=== PATIENT | male | born 1970 | race Caucasian/White ===

== ENCOUNTER 2018-03-25 07:46 | Emergency (ER) | payer OTHER ==
--- NOTE | 2018-03-25 08:57 | EDPHY ---
H & P Stated Complaint: Fell last night, injury to right shoulder blade, left ribs and left ankle. - Personal History Current Tetanus Diphtheria and Acellular Pertussis (TDAP): Yes Tetanus Vaccine Date: within 10 years - Medical/Surgical History Hx Asthma: No Hx Chronic Respiratory Disease: No Hx Diabetes: No Hx Cardiac Disease: No Hx Renal Disease: No Hx Cirrhosis: No Hx Alcoholism: No Hx HIV/AIDS: No Hx Splenectomy or Spleen Trauma: No Other PMH: MS. - Social History Smoking Status: Former smoker Time Seen by Provider: 03/25/18 08:55 HPI/ROS: CHIEF COMPLAINT: Left foot ankle and the rib pain HISTORY OF PRESENT ILLNESS: 48-year-old male history of multiple sclerosis arrives via private vehicle with his stating last night when he was in the shower he sustained a mechanical fall. Due to his MS he has baseline of balance issues in had a mechanical incident the shower last evening rolling his left foot and also impacting his left ribs. The may have impacted his head however no loss of consciousness no headache no nausea no vomiting no altered mentation. He lives in a handicap accessible home, has a wheelchair, multiple ramps and feels comfortable and safe in his current housing situation. Denies: Chest pain, syncope, midline C-spine pain, peripheral paresthesia, weakness, numbness. PRIMARY CARE PROVIDER: Dr. Geovanny Schwartz REVIEW OF SYSTEMS: A ten point review of systems was performed and is negative with the exception of the items mentioned in the HPI PAST MEDICAL/SURGICAL HISTORY: no anticoagulant use, multiple sclerosis SOCIAL HISTORY: denies alcohol use at time of incident PHYSICAL EXAM 1) GENERAL: Well-developed, well-nourished, alert and oriented. Appears to be in no acute distress. Answering questions appropriately. 2) HEAD: Normocephalic, atraumatic 3) HEENT: Pupils equal, round, reactive to light bilaterally. Negative Horners. Nasopharynx, oropharynx, clear. No deformity or angulation of nose. No septal hematoma. No rhinorrhea. No oral trauma. Ears bilaterally with normal tympanic membranes. No hemotympanum. No fluid or blood in the external auditory canal. No raccoon eyes. No Somers sign. Teeth are normally aligned with no gross malocclusion, TMJ bilaterally nontender, facial bones nontender including the zygomatic arch, maxilla mandible. 4) NECK: No cervical collar is on. Posterior cervical spine is nontender, no stepoff, no effusion. Full range of motion which does not elicit any midline cervical spine pain, no posterior midline tenderness, no step-off. [ 5) LUNGS: Clear to auscultation bilaterally, no wheezes, no rhonchi, no retractions. No obvious signs of trauma. Tender to palpation the patient left ribs anterior axillary line approximately rib 10. No flaring, no grunting. Moving symmetrically. No crepitus. 6) HEART: [Regular rate and rhythm, 7) ABDOMEN: No guarding, no rebound, no focal tenderness, no peritoneal signs, no signs of trauma, no ecchymosis. Specifically left flank and splenic region are nontender. 8) MUSCULOSKELETAL: Left lower extremity: Tender to palpation left lateral ankle, tender to palpation left lateral foot with noted soft tissue swelling at both locations. Intact skin. No ecchymosis. Soft compartments. Fibular head and knee and remainder of left lower extremity are nontender. DP PT pulses present and tacked. Otherwise, Moving all extremities, no focal areas of tenderness, no obvious trauma. 9) BACK: No midline vertebral tenderness, no fluctuance, no step-off, no obvious trauma, no visual or palpable abnormality. 10) SKIN: No laceration. No abrasion DIFFERENTIAL DIAGNOSIS: In no particular order including, but not limited to fracture, sprain, compartment syndrome (Kavon,Jaleesa Aleja) Constitutional: Initial Vital Signs Temperature (C) 36.6 C 03/25/18 07:52 Heart Rate 65 03/25/18 07:52 Respiratory Rate 16 03/25/18 07:52 Blood Pressure 136/100 H 03/25/18 07:52 O2 Sat (%) 95 03/25/18 07:52 O2 Delivery Mode Room Air Allergies/Adverse Reactions: Sulfa (Sulfonamide Antibiotics) Allergy (Verified 03/25/18 08:09) Home Medications: Medication Instructions Recorded Calcium Carbonate [Tums 500MG (*)] 500 mg PO DAILY 03/13/15 Cholecalciferol Vit D3 [Vitamin D3 5,000 units PO DAILY 03/13/15 (*)] Multivitamins [Multivitamin (*)] 1 each PO DAILY 03/13/15 [place]-3 Fatty Acids/Fish Oil 2 each PO DAILY 04/09/15 [[place] 3 1,000 mg Softgel] Aspirin [Aspirin 81mg (*)] 81 mg PO DAILY #0 tab 05/07/15 Citalopram [CeleXA 20 MG] 20 mg PO HS #0 tab 05/07/15 Melatonin [Melatonin 3 MG (*)] 3 - 6 mg PO HS PRN #0 tab 05/07/15 Hydrocodone/APAP 5/325 [[place] 1 tab PO Q6 PRN #10 tab 03/25/18 5/325 (RX)] Medical Decision Making - Diagnostics Imaging Results: Images reviewed myself (Jaleesa Jacobson) ED Course/Re-evaluation: 9:08 a.m.: Care of patient under supervision of primary secondary supervising physician who independently evaluated patientwith whom I discussed case. 10:30 a.m.: Re-evaluation. Discussed the imaging results showing left 6th through 8th rib fractures and foot fracture. Patient is maintain normal saturations and he would like to be discharged. I offered admission however he declines this. He has been placed in a Crescent boot, given incentive spirometer. Recommend orthopedic follow-up and follow up with PCP for his rib fracture. Discharged home with analgesia. Discharged with usual and customary orthopedic precautions and instructions (Jaleesa Jacobson) Other Provider: The patient was evaluated and managed by the Physician Production Checker. My co- signature indicates that I have reviewed this chart and I agree with the findings and plan of care as documented. I am the secondary supervising physician. (Dione Mason) Departure - Departure Disposition: Home, Routine, Self-Care Clinical Impression: History of multiple sclerosis, Multiple rib fractures, Foot fracture, left Condition: Good Instructions: Multiple Sclerosis (DC), Rib Fracture (ED), Foot Fracture in Adults (ED) Additional Instructions: Return to the ER immediately if you experience discoloration, have worsening pain, numbness, tingling, or any other symptoms that concern you. If you received x-rays in the emergency department today, be advised, that ligamentous , tendon, muscular, and other non-bony injury cannot be fully ruled out. Try to keep your affected extremity elevated above the level of your chest, and keep cold packs on the affected area, for the next 48 hours. Use your incentive spirometer every hour while awake Referrals: Geovanny Schwartz MD [Primary Care Provider] - 2-3 days, call for appt. Patrice Betancur MD [Medical Doctor] - 2-3 days, call for appt. Prescriptions: Hydrocodone/APAP 5/325 [[place] 5/325 (RX)] 1 tab PO Q6 PRN #10 tab PRN Reason: Pain, Severe
[2018-03-25 11:00] VITALS: BP 133/68
== END 2018-03-25 11:00 | disposition home or self-care (01) ==
DX: S22.42XA Multiple fractures of ribs, left side, initial encounter for closed fracture (principal); S92.902A Unspecified fracture of left foot, initial encounter for closed fracture; Z86.69 Personal history of other diseases of the nervous system and sense organs; Z87.891 Personal history of nicotine dependence; Z79.82 Long term (current) use of aspirin; W18.2XXA Fall in (into) shower or empty bathtub, initial encounter; Y99.8 Other external cause status; Y93.89 Activity, other specified
CPT/HCPCS: 71101; 73610; 73630; 99284; L4386

== ENCOUNTER 2019-02-14 16:52 | Observation (INO) | payer OTHER ==
--- NOTE | 2019-02-14 17:13 | EDPHY ---
H & P Stated Complaint: cough Time Seen by Provider: 02/14/19 17:11 HPI/ROS: CHIEF COMPLAINT: Cough, diagnosed with pneumonia today HISTORY OF PRESENT ILLNESS: Patient has a history of multiple sclerosis and presents to the emergency department after he was diagnosed with a left lower lobe pneumonia by his primary care provider today. The patient has had a cough for the past 11 days and was noted to have an oxygen saturation of 70% on room air. The patient does have a history of multiple sclerosis. The patient denies any pleuritic chest pain. The patient denies any asymmetric calf pain or swelling. The patient has not been on recent antibiotics. He has no history of recent hospitalization. The patient denies any abdominal pain, vomiting or diarrhea. The patient does report moderate dyspnea on exertion. REVIEW OF SYSTEMS: A comprehensive 10 point review of systems is otherwise negative aside from elements mentioned in the history of present illness. Source: Patient - Personal History Current Tetanus/Diphtheria Vaccine: Yes Current Tetanus Diphtheria and Acellular Pertussis (TDAP): Yes Tetanus Vaccine Date: within 10 years - Medical/Surgical History Hx Asthma: No Hx Chronic Respiratory Disease: No Hx Diabetes: No Hx Cardiac Disease: No Hx Renal Disease: No Hx Cirrhosis: No Hx Alcoholism: No Hx HIV/AIDS: No Hx Splenectomy or Spleen Trauma: No Other PMH: MS. - Social History Smoking Status: Former smoker - Physical Exam Exam: General Appearance: Alert, no distress Eyes: Pupils equal and round no pallor or injection ENT, Mouth: Mucous membranes moist Respiratory: There are no retractions, lungs are clear to auscultation Cardiovascular: Regular rate and rhythm Gastrointestinal: Abdomen is soft and nontender, no masses, bowel sounds normal Neurological: A&O, normal motor function, normal sensory exam, normal cranial nerves Skin: Warm and dry, no rashes Musculoskeletal: Neck is supple nontender Extremities: symmetrical, full range of motion Constitutional: Initial Vital Signs Temperature (C) 37.1 C 02/14/19 17:04 Heart Rate 99 02/14/19 17:04 Respiratory Rate 16 02/14/19 17:04 Blood Pressure 120/86 H 02/14/19 17:04 O2 Sat (%) 87 L 02/14/19 17:04 O2 Delivery Mode Nasal Cannula O2 (L/minute) 3 Allergies/Adverse Reactions: amoxicillin Allergy (Verified 02/14/19 17:02) Sulfa (Sulfonamide Antibiotics) Allergy (Verified 03/25/18 08:09) Home Medications: Medication Instructions Recorded Calcium Carbonate [Tums 500MG (*)] 500 mg PO DAILY 03/13/15 Cholecalciferol Vit D3 [Vitamin D3 5,000 units PO DAILY 03/13/15 (*)] Multivitamins [Multivitamin (*)] 1 each PO DAILY 03/13/15 [place]-3 Fatty Acids/Fish Oil 2 each PO DAILY 04/09/15 [[place] 3 1,000 mg Softgel] Aspirin [Aspirin 81mg (*)] 81 mg PO DAILY #0 tab 05/07/15 Citalopram [CeleXA 20 MG] 20 mg PO HS #0 tab 05/07/15 Baclofen 02/14/19 lamOTRIGine 02/14/19 riTUXimab 02/14/19 Medical Decision Making - Diagnostics Imaging Results: Imaging Impressions Chest X-Ray 02/14/19 17:29 Impression: There is a new left basilar streaky opacity which may represent atelectasis or pneumonia. Pulmonary vascularity is prominent centrally. Superior compression deformity of an upper lumbar vertebral body, of uncertain chronicity. Chest/Thorax CTA 02/14/19 18:07 Impression: 1. Negative for acute pulmonary embolus. 2. Basilar predominant tree-in-bud opacities in the left lung. There are also groundglass nodules measuring up to 5 mm. Findings likely represent inflammatory or infectious changes corresponding to bronchitis or pneumonia. Recommend imaging until there is resolution. 3. Prominent mediastinal and hilar lymph nodes are likely reactive. 4. Bilateral gynecomastia. Findings and recommendations discussed with Chris Palma at 1836 hour, 02/14. ED Course/Re-evaluation: The patient is referred to the ED with hypoxia and a possible infiltrate noted on chest x-ray. I was unable to load the patient's outpatient chest x-ray however performed a PA/lateral chest x-ray which demonstrate faint opacities in left lung base but seemed to be very underwhelming by my interpretation to explain his level of hypoxemia. Given the fact that he does have multiple sclerosis I was concerned about the possibility of a PE. A CT pulmonary angiogram was obtained which demonstrates no evidence of a pulmonary embolism but does demonstrate an infiltrate at the left lung base. The patient is quite hypoxic and will require admission to the hospital. The patient received IV Levaquin in the emergency department. He has no evidence of septic physiology. Consultation was made with Dr. Sampson from the hospitalist service who will admit the patient this evening. Differential Diagnosis: Differential diagnosis considered includes asthma, bronchitis, pneumonia, pulmonary embolism - Data Points Laboratory Results: Laboratory Results 02/14/19 17:30 02/14/19 17:30 02/14/19 02/14/19 17:30 17:30 WBC 11.41 10^3/uL H 10^3/uL (3.80-9.50) RBC 4.65 10^6/uL 10^6/uL (4.40-6.38) Hgb 14.3 g/dL g/dL (13.7-17.5) Hct 42.8 % % (40.0-51.0) MCV 92.0 fL fL (81.5-99.8) MCH 30.8 pg pg (27.9-34.1) MCHC 33.4 g/dL g/dL (32.4-36.7) RDW 12.7 % % (11.5-15.2) Plt Count 282 10^3/uL 10^3/uL (150-400) MPV 9.1 fL fL (8.7-11.7) Neut % (Auto) 74.7 % H % (39.3-74.2) Lymph % (Auto) 13.8 % L % (15.0-45.0) [place] % (Auto) 9.7 % % (4.5-13.0) Eos % (Auto) 1.1 % % (0.6-7.6) Baso % (Auto) 0.4 % % (0.3-1.7) Nucleat RBC Rel Count 0.0 % % (0.0-0.2) Absolute Neuts (auto) 8.52 10^3/uL H 10^3/uL (1.70-6.50) Absolute Lymphs (auto) 1.57 10^3/uL 10^3/uL (1.00-3.00) Absolute Monos (auto) 1.11 10^3/uL H 10^3/uL (0.30-0.80) Absolute Eos (auto) 0.13 10^3/uL 10^3/uL (0.03-0.40) Absolute Basos (auto) 0.05 10^3/uL 10^3/uL (0.02-0.10) Absolute Nucleated RBC 0.00 10^3/uL 10^3/uL (0-0.01) Immature Gran % 0.3 % % (0.0-1.1) Immature Gran # 0.03 10^3/uL 10^3/uL (0.00-0.10) Sodium 138 mEq/L mEq/L (135-145) Potassium 4.4 mEq/L mEq/L (3.5-5.2) Chloride 104 mEq/L mEq/L (97-110) Carbon Dioxide 23 mEq/l mEq/l (22-31) Anion Gap 11 mEq/L mEq/L (6-14) BUN 17 mg/dL mg/dL (7-23) Creatinine 0.8 mg/dL mg/dL (0.7-1.3) Estimated GFR > 60 Glucose 111 mg/dL H mg/dL (70-100) Calcium 9.4 mg/dL mg/dL (8.5-10.4) Departure - Departure Disposition: [facility] Inpatient Acute Clinical Impression: Multiple sclerosis Pneumonia Qualifiers: Pneumonia type: due to unspecified organism Laterality: left Lung location: lower lobe of lung Qualified Code(s): J18.1 - Lobar pneumonia, unspecified organism Condition: Good Referrals: Geovanny Schwartz MD [Primary Care Provider] - As per Instructions
[2019-02-14 17:42] LABS: PLATELET COUNT 282 10^3/uL (150-400)
[2019-02-14] MEDS ORDERED: IOPAMIDOL (ISOVUE 370) 100 ML BTL IV ONE (18:09)
[2019-02-14] MEDS ORDERED: LORazepam 0.5 MG TAB PO PRN (20:01)
[2019-02-14] MEDS ORDERED: ONDANSETRON 4 MG/2 ML VIAL IVP PRN (20:01)
[2019-02-14] MEDS ORDERED: ACETAMINOPHEN 325 MG TAB PO PRN (20:01)
[2019-02-14] MEDS ORDERED: HYDROmorphONE/DILAUDID 1 MG/ML INJ IVP PRN (20:01)
[2019-02-14] MEDS ORDERED: ALBUTEROL 3 ML DEYVIAL IH PRN (20:01)
[2019-02-14] MEDS ORDERED: ONDANSETRON DISINTEGRATING 4 MG TAB PO PRN (20:01)
[2019-02-14] MEDS ORDERED: oxyCODONE IR 5 MG TAB PO PRN (20:01)
[2019-02-14] MEDS ORDERED: PROMETHAZINE HCL 25 MG/ML INJ IVP PRN (20:01)
[2019-02-14] MEDS: ATORVASTATIN CALCIUM 20 MG TAB PO SCH (21:35)
[2019-02-14] MEDS: HYDROCODONE/APAP 5/325 TAB PO PRN ×2 (21:36→22:15)
--- NOTE | 2019-02-14 22:15 | PDGENHP ---
History and Physical - Chief Complaint cough, sob - History of Present Illness 49 yo M with PMH of MS that was previously noted to be quite aggressive and rapidly progressive but has been more controlled of late on rituxan and followed at [facility] presenting with complaints of cough and SOB for the last several days. He has been sick for the last 11 days total, initially more URI type symptoms. For the last several days he has noticed more shortness of breath and more productive cough. He has been unable to sleep due to the cough. He was seen by his PCP in [place] who ordered a chest xray and was concerned that he had pneumonia and was sent here for further evaluation. In ER he was noted to have room air sats in the high 80s and imaging confirmed a LLL infiltrate. History Information - Allergies/Home Medication List Allergies/Adverse Reactions: Sulfa (Sulfonamide Antibiotics) Allergy (Severe, Verified 02/14/19 19:37) Rash amoxicillin Allergy (Verified 02/14/19 19:37) Abdominal Pain Home Medications: Cholecalciferol Vit D3 [Vitamin D3 (*)] 5,000 units PO DAILY 03/13/15 [Last Taken 02/14/19] Multivitamins [Multivitamin (*)] 1 each PO DAILY 03/13/15 [Last Taken 02/14/19] [place]-3 Fatty Acids/Fish Oil [[place] 3 1,000 mg Softgel] 1 each PO DAILY [Last Taken 02/14/19] Aspirin EC [Aspirin EC 81 mg (*)] 81 mg PO DAILY 02/14/19 [Last Taken 02/14/19] Atorvastatin Calcium [Lipitor 20 mg (*)] 20 mg PO HS 02/14/19 [Last Taken ] Citalopram Hydrobromide [Citalopram HBr] 5 mg PO DAILY 02/14/19 [Last Taken ] lamoTRIgine [Lamotrigine] 50 mg PO BID 02/14/19 [Last Taken 02/14/19] riTUXimab [Rituxan 500mg (*)] 500 mg IV .Q6 MONTHS 02/14/19 [Last Taken 09/18/18 ] I have personally reviewed and updated: family history, medical history, social history, surgical history - Past Medical History hyperlipidemia, psychiatric history Additional medical history: MS. cervical stenosis - Surgical History Additional surgical history: femur fracture repair with bruno - Family History Additional family history: mom with dementia - Social History Smoking Status: Former smoker Alcohol Use: None Drug Use: None Additional social history: , lives in [place], has a grown son Review of Systems Review of Systems: ROS: 10pt was reviewed & negative except for what was stated in HPI & below Physical Exam Physical Exam: Temp Pulse Resp BP Pulse Ox 36.9 C 87 16 126/92 H 95 02/14/19 19:36 02/14/19 19:36 02/14/19 19:36 02/14/19 19:36 02/14/19 19:36 O2 (L/minute) 2 Constitutional: no apparent distress, appears nourished Eyes: PERRL, anicteric sclera Ears, Nose, Mouth, Throat: moist mucous membranes, hearing normal, other (voice hoarse) Cardiovascular: regular rate and rhythym, no murmur, rub, or gallop Respiratory: reduced air movement, inspiratory crackles, bronchial breath sounds Gastrointestinal: normoactive bowel sounds, soft, non-tender abdomen Genitourinary: no bladder tenderness Skin: warm, normal color Musculoskeletal: full muscle strength Neurologic: AAOx3 Psychiatric: interacting appropriately, not anxious, not encephalopathic Lab Data & Imaging Review 02/14/19 17:30 02/14/19 17:30 WBC 11.41 10^3/uL (3.80-9.50) H 02/14/19 17:30 RBC 4.65 10^6/uL (4.40-6.38) 02/14/19 17:30 Hgb 14.3 g/dL (13.7-17.5) 02/14/19 17:30 Hct 42.8 % (40.0-51.0) 02/14/19 17:30 MCV 92.0 fL (81.5-99.8) 02/14/19 17:30 MCH 30.8 pg (27.9-34.1) 02/14/19 17:30 MCHC 33.4 g/dL (32.4-36.7) 02/14/19 17:30 RDW 12.7 % (11.5-15.2) 02/14/19 17:30 Plt Count 282 10^3/uL (150-400) 02/14/19 17:30 MPV 9.1 fL (8.7-11.7) 02/14/19 17:30 Neut % (Auto) 74.7 % (39.3-74.2) H 02/14/19 17:30 Lymph % (Auto) 13.8 % (15.0-45.0) L 02/14/19 17:30 [place] % (Auto) 9.7 % (4.5-13.0) 02/14/19 17:30 Eos % (Auto) 1.1 % (0.6-7.6) 02/14/19 17:30 Baso % (Auto) 0.4 % (0.3-1.7) 02/14/19 17:30 Nucleat RBC Rel Count 0.0 % (0.0-0.2) 02/14/19 17:30 Absolute Neuts (auto) 8.52 10^3/uL (1.70-6.50) H 02/14/19 17:30 Absolute Lymphs (auto) 1.57 10^3/uL (1.00-3.00) 02/14/19 17:30 Absolute Monos (auto) 1.11 10^3/uL (0.30-0.80) H 02/14/19 17:30 Absolute Eos (auto) 0.13 10^3/uL (0.03-0.40) 02/14/19 17:30 Absolute Basos (auto) 0.05 10^3/uL (0.02-0.10) 02/14/19 17: Absolute Nucleated RBC 0.00 10^3/uL (0-0.01) 02/14/19 17:30 Immature Gran % 0.3 % (0.0-1.1) 02/14/19 17: Immature Gran # 0.03 10^3/uL (0.00-0.10) 02/14/19 17:30 Sodium 138 mEq/L (135-145) 02/14/19 17:30 Potassium 4.4 mEq/L (3.5-5.2) 02/14/19 17:30 Chloride 104 mEq/L (97-110) 02/14/19 17:30 Carbon Dioxide 23 mEq/l (22-31) 02/14/19 17:30 Anion Gap 11 mEq/L (6-14) 02/14/19 17:30 BUN 17 mg/dL (7-23) 02/14/19 17:30 Creatinine 0.8 mg/dL (0.7-1.3) 02/14/19 17:30 Estimated GFR > 60 02/14/19 17:30 Glucose 111 mg/dL (70-100) H 02/14/19 17:30 Calcium 9.4 mg/dL (8.5-10.4) 02/14/19 17:30 Visualized and Interpreted Chest x-ray results: Yes Chest X-Ray results: infiltrate (LLL) Visualized and Interpreted imaging results: Yes Interpretation: CTA chest: no PE, LLL infiltrate with ground glass nodules Assessment & Plan Assessment: Multiple sclerosis (Acute) Pneumonia (Acute) 49 yo M with PMH of MS presenting with cough and sob 2/2 LLL pna # pna: present in LLL, patient does have hx of MS that was previously severe and associated with dysphagia but sounds like he has been more controlled of late so not clear he is aspiration risk. Started on levofloxacin which will be continued. # acute hypoxic respiratory failure: in setting of above, room air sats of 87 and patient lives at higher altitude, continue supplemental o2, ambulation, IS, albuterol PRN # MS: previously severe and aggressive despite multiple different courses of therapy however patient notes has been much better controlled now on current regimen, followed at [facility]. Was previously in wheelchair and now able to walk with walking sticks. # HLD: continue statin # leukocytosis: without other sirs criteria currently, due to above # observation status, patient very hopeful to dc in am Patient new to my care. Old records reviewed and summarized as above. Care plan reviewed with ER doctor, further hx obtained from patients present at bedside.
[2019-02-14] MEDS: lamoTRIgine 100 MG TAB PO SCH (22:18)
[2019-02-14] MEDS: guaiFENesin/CODEINE PHOS 10 ML UDCUP PO PRN (23:50)
[2019-02-15] MEDS: CITALOPRAM 20 MG TAB PO SCH (08:55)
[2019-02-15] MEDS: MULTIVITAMINS 1 EACH TAB PO SCH (08:55)
[2019-02-15] MEDS: lamoTRIgine 100 MG TAB PO SCH ×2 (08:56→20:18)
[2019-02-15] MEDS: CHOLECALCIFEROL VIT D3 2,000 UNITS TAB/CAP PO SCH (08:56)
[2019-02-15] MEDS: OMEGA-3 FATTY ACIDS 1,000 MG CAP PO SCH (08:56)
[2019-02-15] MEDS: ASPIRIN 81 MG CHEWABLE TAB PO SCH (08:56)
[2019-02-15] MEDS ORDERED: ASPIRIN EC 81 MG TAB PO SCH (09:00)
[2019-02-15] MEDS: BACLOFEN 20 MG TAB PO PRN ×2 (14:14→20:18)
--- NOTE | 2019-02-15 15:12 | HOSPPROG ---
Hospitalist Progress Note Assessment/Plan: Ian is a 49 yo M with PMH of MS presenting with cough and sob 2/2 LLL pna. First encounter, chart reviewed. *LLL pna -hx of dysphagia due to MS -respiratory panel shows mycoplasma pna -Levaquin will cover this *acute hypoxic respiratory failure -[place], concerned about having trouble breathing at this altitude *MS -followed at [facility] -quite advanced *leukocytosis *plan: will monitor another midnight for further evaluation. If doing better, will dc in the morning Subjective: Ian is feeling better but has ongoing shortness of breath. Objective: Vital Signs Temp Pulse Resp BP Pulse Ox 36.6 C 116 H 16 134/89 H 92 02/15/19 15:05 02/15/19 15:05 02/15/19 15:05 02/15/19 15:05 02/15/19 15:05 Microbiology 02/15/19 05:45 Respiratory Panel (PCR) - Final Nasal, Sinus - Swab Mycoplasma Pneumoniae Detected 02/14/19 02/15/19 02/16/19 05:59 05:59 05:59 Intake Total 200 Balance 200 - Physical Exam Constitutional: no apparent distress, appears nourished, not in pain Eyes: PERRL Ears, Nose, Mouth, Throat: hearing normal Cardiovascular: regular rate and rhythym Respiratory: no respiratory distress, reduced air movement, rhonchi (left base) Skin: warm Musculoskeletal: generalized weakness Neurologic: AAOx3 Psychiatric: interacting appropriately ICD10 Worksheet Patient Problems: Problems Problem Status Onset Multiple sclerosis Acute Pneumonia Acute Multiple sclerosis exacerbation Acute
--- NOTE | 2019-02-15 15:43 | ASMTCMCOM ---
CM Note CM Note Notes: CM spoke with pt in the room. Pt lives with in [place] and has advanced MS, admitted for mycoplasma pneumonia. PT is recommending IpR but pt is current with [facility] and would like to continue with them instead. Pt has a really good relationship with his PT and he is "on a rigorous program". Pt likely to discharge tomorrow. Referral sent to [facility]. CM to follow. D/C Plan: [facility] Date Signed: 02/15/2019 03:42 PM Electronically Signed By:Riya Cardoso. KEZIA
[2019-02-15] MEDS: ATORVASTATIN CALCIUM 20 MG TAB PO SCH (20:18)
[2019-02-15] MEDS: guaiFENesin/CODEINE PHOS 10 ML UDCUP PO PRN (20:18)
[2019-02-16 08:06] VITALS: BP 114/75
[2019-02-16] MEDS: CHOLECALCIFEROL VIT D3 2,000 UNITS TAB/CAP PO SCH (08:21)
[2019-02-16] MEDS: ASPIRIN 81 MG CHEWABLE TAB PO SCH (08:22)
[2019-02-16] MEDS: lamoTRIgine 100 MG TAB PO SCH (08:22)
[2019-02-16] MEDS: BACLOFEN 20 MG TAB PO PRN (08:22)
[2019-02-16] MEDS: MULTIVITAMINS 1 EACH TAB PO SCH (08:22)
[2019-02-16] MEDS: CITALOPRAM 20 MG TAB PO SCH (08:23)
[2019-02-16] MEDS: OMEGA-3 FATTY ACIDS 1,000 MG CAP PO SCH (08:23)
--- NOTE | 2019-02-16 10:34 | HOSPPROG ---
Hospitalist Progress Note Assessment/Plan: Ian is a 49 yo M with PMH of MS presenting with cough and sob 2/2 LLL pna. *LLL pna -hx of dysphagia due to MS -respiratory panel shows mycoplasma pna -Levaquin will cover this *acute hypoxic respiratory failure -he [place], concerned about having trouble breathing at this altitude *MS -followed at [facility] -quite advanced *leukocytosis *plan: feeling much better, dc home w close f/u with his PCP Subjective: Ian is feeling well. Objective: Vital Signs Temp Pulse Resp BP Pulse Ox 36.9 C 77 18 114/75 90 L 02/16/19 08:05 02/16/19 09:10 02/16/19 09:10 02/16/19 08:05 02/16/19 09:10 Microbiology 02/15/19 05:45 Respiratory Panel (PCR) - Final Nasal, Sinus - Swab Mycoplasma Pneumoniae Detected 02/15/19 02/16/19 02/17/19 05:59 05:59 05:59 Intake Total 200 1450 Balance 200 1450 - Physical Exam Constitutional: no apparent distress, appears nourished, not in pain Eyes: PERRL Ears, Nose, Mouth, Throat: hearing normal Cardiovascular: regular rate and rhythym Respiratory: no respiratory distress, no rales or rhonchi, clear to auscultation Gastrointestinal: normoactive bowel sounds Skin: warm Neurologic: AAOx3 Psychiatric: interacting appropriately ICD10 Worksheet Patient Problems: Problems Problem Status Onset Multiple sclerosis Acute Pneumonia Acute Multiple sclerosis exacerbation Acute
--- NOTE | 2019-02-16 10:42 | PDIAF ---
- Diagnosis Diagnosis: Mycoplasma pna, MS Code Status: Full Code - Medication Management Discharge Medications: electronically signed and located in the Home Medication List. PICC Care - Routine: N/A - Orders Services needed: Home Care, Registered Nurse, Physical Therapy, Occupational Therapy Home Care Face to Face: I certify that this patient was under my care and that I had the required [id number] encounter meeting the encounter requirements on the discharge day. My findings support the fact that the patient is homebound as defined in Home Care Face to Face Continued: CMS Chapter 7 Medicare Benefits Manual 30.1.1 , The condition of the patient is such that there exists a normal inability to leave home and consequently, leaving home would require a considerable and taxing effort. Isolation Type: Droplet Isolation Diet Texture: Regular Texture Diet, Thin Liquids, Meds Whole w/Liquids Additional Instructions: take Levaquin as instructed, start tomorrow, if you have any tendon problems: see your primary care doctor if you develop more than 3 liquid stools - see your doctor wear oxygen if oxygen saturations are <90% take good care if you develop fever, chills, chest pain or worsening shortness of breath; return to the ER - Follow Up Care Current Providers and Referrals: Geovanny Schwartz MD [Primary Care Provider] - As per Instructions
--- NOTE | 2019-02-16 10:53 | ASMTLACE ---
LACE Length of stay for Answers: 2 days current admission Acuity / Level of Answers: No Care: Did the patient have an inpatient admission? Comorbidities - select Answers: Other Notes: MS; HLD all that apply # of Emergency department Answers: 1-2 visits in the last 6 months Score: 4 Date Signed: 02/16/2019 10:53 AM Electronically Signed By:Earlene Mc RN
--- NOTE | 2019-02-16 10:59 | ASMTDCNOTE ---
Case Management Discharge Discharge Order Complete? Answers: Yes Patient to Obtain Answers: via Family Medications Transportation Arranged Answers: Family/Friends Faxed Final Orders Answers: Yes Agency/Facility Transfer Answers: Yes Report Printed & Faxed to Receiving Agency Family Notified Answers: Yes Discharge Comments Notes: D/w ABALONE SHELLER, final orders faxed. [facility] notified. Date Signed: 02/16/2019 10:59 AM Electronically Signed By:Earlene Mc RN
--- NOTE | 2019-02-16 11:07 | GDS ---
[f rep st] DISCHARGE SUMMARY DISCHARGE DIAGNOSES: 1. Left lower lobe pneumonia, mycoplasma. 2. Acute hypoxemic respiratory failure. 3. Multiple sclerosis. 4. Leukocytosis. HISTORY OF PRESENT ILLNESS: Briefly, Ian is a 49-year-old male with a history of MS, who presented with cough and shortness of breath. He had a chest x-ray that revealed a left lower lobe pneumonia. A CTA was performed that noted he had a 4 mm right middle lobe nodule. Will need further followup i n regard to this, but it was negative for an acute PE. He improved throughout his stay. He is feeli ng markedly better. He will follow up with Dr. Schwartz. HOSPITAL COURSE: 1. Left lower lobe pneumonia, consistent with mycoplasma. He is on Levaquin which will cover this. He also has a history of dysphagia, was seen by Speech Therapy. Recommendations were made. 2. Acute hypoxic respiratory failure, resolved. 3. MS he is followed at [facility]. 4. Leukocytosis, stable. DISCHARGE CONDITION: Stable. Blood pressure is 114/75, heart rate is 79, respiratory rate is 16, O2 sats on room air ranging 90% to 94%, temperature is 36.9 Celsius. MEDICATIONS AT DISCHARGE: Please see the EMR. DISCHARGE INSTRUCTIONS: 1. To get followup in regard to the 4 mm pulmonary nodule. 2. Take Levaquin as instructed. If he develops any type of tendon problems, especially Achilles, se e his doctor right away. 3. If he develops more than 3 liquid stools, see his doctor. 4. He has oxygen at home to wear if oxygen levels are less than 90%. /[id number]/MODL
--- NOTE | 2019-02-17 16:37 | ASDISCHSUM ---
Discharge Information Plan Status:Home with Home Health Medically Cleared to Leave: Discharge Date:02/16/2019 02:25 PM CM D/C Disposition:Home Health Service ADT D/C Disposition:[id number] Projected Discharge Date:02/16/2019 11:00 AM Transportation at D/C:Family Discharge Delay Reason: Follow-Up Date:02/16/2019 11:00 AM Discharge Slot: Final Diagnosis: Placement Information Referral Type:*Home Health Care Services Referral ID:[id number] Provider Name:[facility] Address 1:[address] Phone Number: Address [address]: [address] Fax Number: City:[place] Selection Factors: State:[place] Patient Contact Information Contact Name:BRITTNY Relationship: Address: [address] Work Phone: City:[facility] Phone: State/Zip Code:[place] [address] Email: Financial Information Financial Class:Medicare Primary Plan Desc:MEDICARE OUTPATIENT Primary Plan Number:[id number] Secondary Plan Desc:JAYDON ACUÑA Secondary Plan Number:[id number] Assessment Information LACE LACE Length of stay for Answers: 2 days current admission Acuity / Level of Answers: No Care: Did the patient have an inpatient admission? Comorbidities - select Answers: Other Notes: MS; HLD all that apply # of Emergency department Answers: 1-2 visits in the last 6 months Score: 4 Date Signed: 02/16/2019 10:53 AM Electronically Signed By:Earlene Mc RN [facility] Progress Note CM Note CM Note Notes: CM spoke with pt in the room. Pt lives with in [place] and has advanced MS, admitted for mycoplasma pneumonia. PT is recommending IpR but pt is current with [facility] and would like to continue with them instead. Pt has a really good relationship with his PT and he is "on a rigorous program". Pt likely to discharge tomorrow. Referral sent to [facility]. CM to follow. D/C Plan: [facility] Date Signed: 02/15/2019 03:42 PM Electronically Signed By:Riya Hairston RN Case Management Discharge Plan Note Case Management Discharge Discharge Order Complete? Answers: Yes Patient to Obtain Answers: via Family Medications Transportation Arranged Answers: Family/Friends Faxed Final Orders Answers: Yes Agency/Facility Transfer Answers: Yes Report Printed & Faxed to Receiving Agency Family Notified Answers: Yes Discharge Comments Notes: D/w [employer], final orders faxed. [facility] notified. Date Signed: 02/16/2019 10:59 AM Electronically Signed By:Earlene Mc RN Intervention Information Intervention Type:*Incorrect Registration Date of Service:02/14/2019 07:14 AM Patient Type:Inpatient Staff Member:KEZIA Blakely, Kaci Hours: Discipline: Severity: Comment: Intervention Type:*SUMMERS-Signed Date of Service:02/15/2019 10:26 AM Patient Type:Observation Staff Member:Yumi Dowling Hours: Discipline: Severity: Comment:
== END 2019-02-16 14:25 | disposition home health service (06) ==
LOC: INTOOBSV 18:37 → F3E 19:30
PROVIDERS: ADMIT Internal Medicine; ATTEND Internal Medicine
DX: J15.7 Pneumonia due to Mycoplasma pneumoniae (principal); J96.01 Acute respiratory failure with hypoxia; G35 Multiple sclerosis; R91.8 Other nonspecific abnormal finding of lung field; E78.5 Hyperlipidemia, unspecified
CPT/HCPCS: 71046; 71275; 92610; 96374; 96376; 97116; 97162; 97166; 97530; 99285; G0378; J1956; Q9967